=== PATIENT | female | born 1965 | race Caucasian/White ===

== ENCOUNTER 2016-12-14 06:07 | Emergency (ER) | END 2016-12-14 09:01 | disposition home or self-care (01) | DX: S80.212A Abrasion, left knee, initial encounter (principal); W01.0XXA Fall on same level from slipping, tripping and stumbling without subsequent striking against object, initial encounter; Y92.89 Other specified places as the place of occurrence of the external cause ==

== ENCOUNTER 2017-10-25 06:55 | Emergency (ER) | END 2017-10-25 09:30 | disposition home or self-care (01) ==